=== PATIENT | male | born 1960 | race Caucasian/White ===

== ENCOUNTER 2022-07-29 07:57 | Outpatient (CLI) | payer OTHER, SELFPAY ==
--- NOTE | ~2022-07-29 | CT_ITS ---
EXAMINATION: CT sinus wo con DATE: 07/29/2022 08:15 INDICATION: Chronic pansinusitis TECHNIQUE: Computed tomography (CT) of the paranasal sinuses was performed without intravenous contra st. The dose-length product (DLP) was 286.97 mGy-cm. Iterative reconstruction was used. COMPARISON: None FINDINGS: There are surgical changes in the inferior aspect of the left orbit, the left maxilla anter iorly, and the right mandibular condyle. There is normal development and pneumatization of the parana kirti sinuses. There is mild mucosal thickening of the frontal sinuses and ethmoidal air cells. There i s mild to moderate opacification of the right sphenoid sinus. The left sphenoid sinus and maxillary s inuses are clear. There are 4 mm of rightward deviation of the nasal septum.. The bilateral ostiomeat al complexes are patent. Visualized soft tissues are unremarkable. IMPRESSION: 1. Mild sinusitis as detailed above. Reviewed, dictated and finalized at location A. [employer]
== END 2022-07-29 07:58 | disposition home or self-care (01) ==
LOC: ANHIMG 08:01
PROVIDERS: PCP Nurse Practitioner Family; Visit Provider Otolaryngology
DX: J32.4 Chronic pansinusitis (principal)
CPT/HCPCS: 70486

== ENCOUNTER 2023-04-22 01:52 | Day surgery (SDC) | payer OTHER, SELFPAY ==
[2023-04-08 09:55] VITALS: BMI 23.0
--- NOTE | 2023-04-21 10:23 | PM.HPGS ---
History of Present Illness History of Present Illness Consent: Risks, benefits, and alternatives have been discussed and questions answered. Patient agrees to proceed with procedure. Chief complaint: hx of colon polyps Narrative: Iva Tobias is a 63 year old male referred for colon cancer screening. He has a history of polyps Review of Systems Review of Systems: All systems reviewed & are unremarkable except as noted in HPI and below PMFSH Social History Social History Smoking status: Current every day smoker Tobacco type: cigarettes Alcohol intake: never Substance use: current Substance use type: marijuana Living arrangements: with family Spiritual care concerns: No Meds Home Medications and Allergies Home Medications Medication Instructions Recorded Confirmed Type albuterol sulfate 90 mcg/actuation 1 puff inhalation TID PRN 04/08/23 04/08/23 History aerosol inhaler Shortness Of Breath Or Wheezing alendronate 70 mg tablet 70 mg PO WEEKLY 04/08/23 04/08/23 History atorvastatin 40 mg tablet 40 mg PO DAILY 04/08/23 04/08/23 History empagliflozin 10 mg tablet 10 mg PO DAILY 04/08/23 04/08/23 History (Jardiance) ergocalciferol (vitamin D2) 1,250 1 mcg PO WEEKLY 04/08/23 04/08/23 History mcg (50,000 unit) capsule tiotropium 2.5 mcg-olodaterol 2.5 2 puff inhalation DAILY 04/08/23 04/08/23 History mcg/actuation mist for inhalation (Stiolto Respimat) Allergies Allergy/AdvReac Type Severity Reaction Status Date / Time No Known Allergies Allergy Verified 04/22/23 06:50 Exam Const: General: alert Orientation/consciousness: patient oriented x3 Resp: Auscultation: clear to auscultation bilaterally Cardio: Rhythm: regular rhythm GI: GI Palp: Yes Soft to palpation and No Tenderness to palpation present (GI) Neuro: General: patient oriented x3 Assessment and Plan Assessment and plan (1) Colon cancer screening: Code(s): Z12.11 - Encounter for screening for malignant neoplasm of colon Status: Acute Assessment and Plan: Colonoscopy with possible biopsy or polypectomy or cautery or injection of substances.
[2023-04-22 06:53] VITALS: BP 131/73; PULSE 55; RESP 18; TEMP 36.1; O2SAT 98
[2023-04-22] MEDS: LACTATED RINGERS 1,000 ML 150 ML IV CONT (07:12)
[2023-04-22 07:13] LABS: Glucose Point of Care 99 mg/dl (65-105)
--- NOTE | 2023-04-22 07:27 | P.PNAN_ITS ---
Anes - Initial Pre Proc Eval Procedure: Operation Date: 04/22/23 08:00 Proposed Procedures p Screening Colonoscopy - Benoit Boggs MD Date/Time: 04/22/23 07:27 Surgeon: Benoit Boggs MD Pre Op Diagnosis: hx of colon polyps Patient Data Age: 63 Gender: M Height: 1.78 m Weight: 68.5 kg Last Vital Signs Temp 97 F L 04/22/23 06:53 Pulse 55 L 04/22/23 06:53 Resp 18 04/22/23 06:53 BP 131/73 04/22/23 06:53 Pulse Ox 98 04/22/23 06:53 O2 Del Method Room Air 04/22/23 06:53 Allergies Allergy/AdvReac Type Severity Reaction Status Date / Time No Known Allergies Allergy Verified 04/22/23 06:50 Home Medications Medication Instructions Recorded Confirmed Type albuterol sulfate 90 mcg/actuation 1 puff inhalation TID PRN 04/08/23 04/08/23 History aerosol inhaler Shortness Of Breath Or Wheezing alendronate 70 mg tablet 70 mg PO WEEKLY 04/08/23 04/08/23 History atorvastatin 40 mg tablet 40 mg PO DAILY 04/08/23 04/08/23 History empagliflozin 10 mg tablet 10 mg PO DAILY 04/08/23 04/08/23 History (Jardiance) ergocalciferol (vitamin D2) 1,250 1 mcg PO WEEKLY 04/08/23 04/08/23 History mcg (50,000 unit) capsule tiotropium 2.5 mcg-olodaterol 2.5 2 puff inhalation DAILY 04/08/23 04/08/23 History mcg/actuation mist for inhalation (Stiolto Respimat) Laboratory Tests 04/22/23 07:09 POC Capillary Glucose 99 mg/dl (65-105) Patient hx anesthesia problems: none Family hx anesthesia problems: none Results Review: All pre-operative results and documents have been reviewed as part of the pre- operative evaluation. [facility] Social History Social History Smoking status: Current every day smoker Tobacco type: cigarettes Alcohol intake: never Substance use: current Substance use type: marijuana Living arrangements: with family Spiritual care concerns: No Anes - Eval Final PreProcedure Day of Procedure 04/22/23 07:27 Patient weight: normal Heart: regular rate and rhythm Lungs: clear to auscultation Airway: Mallampati scale class II Neurological: alert and oriented Last oral intake: >/= 8 hours ASA classification: III Emergent: no Anesthetic plan: proceed Anesthesia type and monitoring: general GIVS and standard monitoring Results Review: All pre-operative results and documents have been reviewed as part of the pre- operative evaluation. Informed Consent: The patient's anesthetic plan and its attendant risks and benefits were discussed with the patient/family/POA. Questions were solicited and answers provided to the satisfaction of the patient/family/POA.
[2023-04-22 08:09] VITALS: BP 90/49; PULSE 48; RESP 22; O2SAT 95
[2023-04-22 08:19] VITALS: BP 107/60; PULSE 56; RESP 18; O2SAT 96
[2023-04-22 08:29] VITALS: BP 114/72; PULSE 54; RESP 20; O2SAT 100
== END 2023-04-22 08:41 | disposition home or self-care (01) ==
PROVIDERS: PCP Nurse Practitioner Family; Visit Provider Internal Medicine Gastroenterology
PROC: 0DJD8ZZ Inspection of Lower Intestinal Tract, Via Natural or Artificial Opening Endoscopic (ICD-10-PCS; CPT 45378; principal; 2023-04-22 08:00)
DX: Z12.11 Encounter for screening for malignant neoplasm of colon (principal); K57.30 Diverticulosis of large intestine without perforation or abscess without bleeding; Z86.010 Personal history of colon polyps; Z79.51 Long term (current) use of inhaled steroids; Z79.84 Long term (current) use of oral hypoglycemic drugs; F17.210 Nicotine dependence, cigarettes, uncomplicated; F12.90 Cannabis use, unspecified, uncomplicated
CPT/HCPCS: 45378; 82948; J2704; J7120